=== PATIENT | male | born 1995 | race Caucasian/White ===

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

== ENCOUNTER 2017-03-12 16:23 | Emergency (ER) | payer SELFPAY ==
[~2017-03-12] VITALS: Ht 177.8 cm; Wt 65.8 kg
[2017-03-12 16:31] VITALS: BP 141/69
[2017-03-12] MEDS ORDERED: CEPHALEXIN500 M1 PO (16:53)
== END 2017-03-12 16:28 | disposition home or self-care (01) ==
LOC: ED 16:23
DX: S69.92XA Unspecified injury of left wrist, hand and finger(s), initial encounter (principal); F17.200 Nicotine dependence, unspecified, uncomplicated; W22.8XXA Striking against or struck by other objects, initial encounter; Y93.9 Activity, unspecified; Y92.9 Unspecified place or not applicable; Y99.9 Unspecified external cause status

== ENCOUNTER 2018-12-27 17:24 | Emergency (ER) | payer OTHER ==
[~2018-12-27] VITALS: Ht 177.8 cm; Wt 72.6 kg
[2018-12-27 17:26] VITALS: BP 128/71
== END 2018-12-27 19:19 | disposition home or self-care (01) ==
LOC: ED 17:24
DX: S93.401A Sprain of unspecified ligament of right ankle, initial encounter (principal); V89.9XXA Person injured in unspecified vehicle accident, initial encounter; Y93.I9 Activity, other involving external motion; Y92.488 Other paved roadways as the place of occurrence of the external cause; Y99.8 Other external cause status

== ENCOUNTER 2019-09-03 16:25 | Emergency (ER) | payer OTHER ==
[~2019-09-03] VITALS: Ht 177.8 cm; Wt 77.1 kg
[2019-09-03 16:27] VITALS: BP 133/82
[2019-09-03] MEDS ORDERED: IBU600 M1 PO (19:03)
== END 2019-09-03 19:30 | disposition home or self-care (01) ==
LOC: ED 16:25
DX: S39.011A Strain of muscle, fascia and tendon of abdomen, initial encounter (principal); J45.909 Unspecified asthma, uncomplicated; F17.200 Nicotine dependence, unspecified, uncomplicated; Z79.2 Long term (current) use of antibiotics; X50.1XXA Overexertion from prolonged static or awkward postures, initial encounter; Y93.55 Activity, bike riding; Y92.488 Other paved roadways as the place of occurrence of the external cause; Y99.8 Other external cause status

== ENCOUNTER 2020-03-03 14:42 | Emergency (ER) | payer OTHER ==
[~2020-03-03] VITALS: Ht 177.8 cm; Wt 77.1 kg
[~2020-03-03 14:42] MED LIST changes: +IBU600 M1 PO
[2020-03-03 15:11] LABS: BASO % 0.9 % (0.0-1.0); EOS # 0.1 10*3/uL (0.0-0.4); HEMATOCRIT 41.5 % (42.0-52.0); LYMPH # 1.4 10*3/uL (1.3-4.4); LYMPH % 40.6 % (27.0-41.0); MEAN CELL VOLUME 90.6 fl (80.0-94.0); MEAN CORPUSCULAR HGB 30.8 pg (27.0-31.0); MEAN PLATELET VOLUME 9.8 fl (9.6-12.3); MONO # 0.5 10*3/uL (0.1-1.0); MONO % 13.1 % (3.0-9.0); NEUT # 1.5 10*3/uL (2.3-7.9); NEUT % 42.5 % (47.0-73.0); PLATELET COUNT AUTOMATED 207 10*3/uL (130-400); RED BLOOD COUNT 4.58 10*6/uL (4.50-5.90); RED CELL DISTRI WIDTH 12.2 % (0-14.5); WHITE BLOOD COUNT 3.5 10*3/uL (4.8-10.8)
[2020-03-03 15:22] LABS: ALBUMIN 4.2 gm/dl (3.1-4.5); ALKALINE PHOSPHATASE 86 U/L (45-117); BUN 10 mg/dl (7-24); CHLORIDE 105 mmol/L (98-107); CREATININE 1.09 mg/dL (0.70-1.30); POTASSIUM 3.7 mmol/L (3.5-5.1); SGOT/AST 33 IU/L (3-35); SGPT/ALT 44 U/L (12-78); SODIUM 138 mmol/L (136-145); TOTAL PROTEIN 7.3 gm/dL (6.4-8.2)
[2020-03-03 15:28] VITALS: BP 149/87
== END 2020-03-03 15:54 ==
LOC: ED 14:42
PROVIDERS: Nurse Practitioner Family
DX: T20.30XA Burn of third degree of head, face, and neck, unspecified site, initial encounter (principal); T22.20XA Burn of second degree of shoulder and upper limb, except wrist and hand, unspecified site, initial encounter; J45.909 Unspecified asthma, uncomplicated; X14.1XXA Other contact with hot air and other hot gases, initial encounter; Y93.89 Activity, other specified; Y92.828 Other wilderness area as the place of occurrence of the external cause; Y99.0 Civilian activity done for income or pay

== ENCOUNTER 2020-06-20 02:30 | Emergency (ER) | payer OTHER ==
[~2020-06-20] VITALS: Ht 175.2 cm; Wt 71.7 kg
[2020-06-20 02:44] VITALS: BP 128/72
== END 2020-06-20 05:49 | disposition home or self-care (01) ==
LOC: ED 02:30
DX: S02.2XXA Fracture of nasal bones, initial encounter for closed fracture (principal); S00.83XA Contusion of other part of head, initial encounter; Z79.899 Other long term (current) drug therapy; Y08.89XA Assault by other specified means, initial encounter; Y93.89 Activity, other specified; Y92.89 Other specified places as the place of occurrence of the external cause; Y99.8 Other external cause status

== ENCOUNTER 2020-09-17 10:41 | Emergency (ER) | payer OTHER ==
[~2020-09-17] VITALS: Ht 177.8 cm; Wt 83.0 kg
[2020-09-17 15:35] VITALS: BP 118/66
== END 2020-09-17 16:12 | disposition home or self-care (01) ==
LOC: ED 10:41
DX: T20.40XA Corrosion of unspecified degree of head, face, and neck, unspecified site, initial encounter (principal); F10.129 Alcohol abuse with intoxication, unspecified; F17.200 Nicotine dependence, unspecified, uncomplicated; Y93.89 Activity, other specified; Y92.89 Other specified places as the place of occurrence of the external cause; Y99.8 Other external cause status; Y90.9 Presence of alcohol in blood, level not specified

== ENCOUNTER 2021-05-09 22:27 | Emergency (ER) | payer OTHER ==
[~2021-05-09] VITALS: Ht 180.3 cm; Wt 74.8 kg
[2021-05-09] MEDS ORDERED: PENICILLIN VK500 MG PO (22:39)
== END 2021-05-09 22:47 | disposition home or self-care (01) ==
LOC: ED 22:27
DX: K02.9 Dental caries, unspecified (principal)

== ENCOUNTER 2021-06-01 12:59 | Emergency (ER) | payer OTHER ==
[~2021-06-01] VITALS: Ht 180.3 cm; Wt 72.6 kg
[~2021-06-01 12:59] MED LIST changes: +PENICILLIN VK500 MG PO
[2021-06-01 13:15] VITALS: BP 115/78
== END 2021-06-01 14:40 | disposition home or self-care (01) ==
LOC: ED 12:59
DX: T15.02XA Foreign body in cornea, left eye, initial encounter (principal); X58.XXXA Exposure to other specified factors, initial encounter; Y93.89 Activity, other specified; Y92.89 Other specified places as the place of occurrence of the external cause; Y99.8 Other external cause status

== ENCOUNTER → 2021-08-25 | Outpatient (CLI) | payer OTHER | END | disposition home or self-care (01) | LOC: COVID19 15:57 | PROVIDERS: ATTEND Internal Medicine | DX: U07.1 COVID-19 (principal) ==

== ENCOUNTER 2021-12-12 16:45 | Emergency (ER) | payer OTHER ==
[~2021-12-12] VITALS: Ht 177.8 cm; Wt 74.8 kg
[2021-12-12 16:56] VITALS: BP 132/73
== END 2021-12-12 18:44 | disposition home or self-care (01) ==
LOC: ED 16:45
DX: S93.401A Sprain of unspecified ligament of right ankle, initial encounter (principal); Z90.89 Acquired absence of other organs; X58.XXXA Exposure to other specified factors, initial encounter; Y93.89 Activity, other specified; Y92.89 Other specified places as the place of occurrence of the external cause; Y99.8 Other external cause status

== ENCOUNTER 2022-10-02 02:01 | Emergency (ER) | payer OTHER ==
[~2022-10-02] VITALS: Ht 177.8 cm; Wt 77.1 kg
[2022-10-02 02:08] VITALS: BP 123/79
[2022-10-02 02:29] LABS: BASO % 0.8 % (0.0-1.0); EOS # 0.1 10*3/uL (0.0-0.4); EOS % 1.7 % (1.0-4.0); HEMATOCRIT 43.8 % (42.0-52.0); LYMPH # 1.4 10*3/uL (1.3-4.4); LYMPH % 29.8 % (27.0-41.0); MEAN CELL VOLUME 89.8 fl (80.0-94.0); MEAN CORPUSCULAR HGB 30.7 pg (27.0-31.0); MEAN CORPUSCULAR HGB CONC 34.2 g/dl (33.0-37.0); MEAN PLATELET VOLUME 9.4 fl (9.6-12.3); MONO # 0.5 10*3/uL (0.1-1.0); MONO % 9.7 % (3.0-9.0); NEUT # 2.8 10*3/uL (2.3-7.9); NEUT % 57.8 % (47.0-73.0); PLATELET COUNT AUTOMATED 217 10*3/uL (130-400); RED BLOOD COUNT 4.88 10*6/uL (4.50-5.90); RED CELL DISTRI WIDTH 12.1 % (0-14.5); WHITE BLOOD COUNT 4.8 10*3/uL (4.8-10.8)
[2022-10-02 03:12] LABS: ALKALINE PHOSPHATASE 97 U/L (46-116); BUN 8 mg/dl (9-23); CHLORIDE 102 mmol/L (98-107); SGPT/ALT 20 U/L (10-49); THYROID STIM HORMONE (HS) 0.814 uIU/ml (0.550-4.780); TOTAL PROTEIN 7.5 gm/dL (6.0-8.0)
== END 2022-10-02 03:33 | disposition home or self-care (01) ==
LOC: ED 02:01
PROVIDERS: Emergency Medicine
DX: R20.2 Paresthesia of skin (principal); R07.89 Other chest pain; Z98.890 Other specified postprocedural states; Z87.891 Personal history of nicotine dependence

== ENCOUNTER 2023-01-14 02:43 | Emergency (ER) | payer OTHER ==
[~2023-01-14] VITALS: Ht 180.3 cm; Wt 77.1 kg
[2023-01-14 02:46] VITALS: BP 131/83
[2023-01-14 03:07] LABS: BILIRUBIN Negative (Negative); BLOOD Negative (Negative); CLARITY Clear (Clear); COLOR Yellow (Yellow); GLUCOSE Negative (Negative); KETONE Negative (Negative); LEUKO ESTERASE Negative (Negative); NITRITE Negative (Negative); PH 6.5 (4.5-8.0); SPECIFIC GRAVITY <= 1.005 (1.001-1.030); UROBILINOGEN 0.2 E.U./dl (0.0-1.0)
[2023-01-14 03:14] LABS: EPITHELIAL CELLS 0-2; URINE AMPHETAMINES Negative (1000ng/ml); URINE BARBITURATES Negative (200ng/ml); URINE BENZODIAZEPINES Negative (200ng/ml); URINE CANNABINOIDS (THC) Negative (50ng/ml); URINE COCAINE Negative (300ng/ml); URINE METHADONE Negative (300ng/ml); URINE OPIATES Negative (300ng/ml); URINE PHENCYCLIDINE Negative (25ng/ml)
[2023-01-14 03:17] LABS: BASO # 0.1 10*3/uL (0.0-0.1); BASO % 0.8 % (0.0-1.0); EOS # 0.1 10*3/uL (0.0-0.4); EOS % 1.6 % (1.0-4.0); LYMPH % 31.4 % (27.0-41.0); MEAN CELL VOLUME 88.7 fl (80.0-94.0); MEAN CORPUSCULAR HGB 30.5 pg (27.0-31.0); MEAN CORPUSCULAR HGB CONC 34.4 g/dl (33.0-37.0); MEAN PLATELET VOLUME 9.6 fl (9.6-12.3); MONO # 0.6 10*3/uL (0.1-1.0); MONO % 9.3 % (3.0-9.0); NEUT # 3.5 10*3/uL (2.3-7.9); NEUT % 56.6 % (47.0-73.0); PLATELET COUNT AUTOMATED 183 10*3/uL (130-400); RED BLOOD COUNT 4.85 10*6/uL (4.50-5.90); RED CELL DISTRI WIDTH 12.1 % (0-14.5); WHITE BLOOD COUNT 6.2 10*3/uL (4.8-10.8)
[2023-01-14 03:40] LABS: ALKALINE PHOSPHATASE 91 U/L (46-116); BUN 6 mg/dl (9-23); CHLORIDE 103 mmol/L (98-107); CPK 177 U/L (34-171); ETHYL ALCOHOL 234.4 mg/dl (<3); POTASSIUM 3.5 mmol/L (3.4-5.1); SGPT/ALT 13 U/L (10-49); TOTAL PROTEIN 7.6 gm/dL (6.0-8.0)
== END 2023-01-14 15:49 | disposition home or self-care (01) ==
LOC: ED 02:43
PROVIDERS: Emergency Medicine
DX: F32.A Depression, unspecified (principal); F10.129 Alcohol abuse with intoxication, unspecified; J45.909 Unspecified asthma, uncomplicated; Z98.890 Other specified postprocedural states; Z87.891 Personal history of nicotine dependence; Y90.2 Blood alcohol level of 40-59 mg/100 ml

== ENCOUNTER 2023-04-23 22:12 | Emergency (ER) | payer OTHER ==
[~2023-04-23] VITALS: Ht 180.3 cm; Wt 74.8 kg
[2023-04-23 22:20] VITALS: BP 127/78
[2023-04-23] MEDS ORDERED: METHOCARBAMOL500 M1 PO (23:40)
[2023-04-23] MEDS ORDERED: NAPROXEN250 MG PO (23:40)
== END 2023-04-23 23:54 | disposition home or self-care (01) ==
LOC: ED 22:12
DX: S20.219A Contusion of unspecified front wall of thorax, initial encounter (principal); S80.11XA Contusion of right lower leg, initial encounter; R42 Dizziness and giddiness; V86.99XA Unspecified occupant of other special all-terrain or other off-road motor vehicle injured in nontraffic accident, initial encounter; Y93.I9 Activity, other involving external motion; Y92.488 Other paved roadways as the place of occurrence of the external cause; Y99.8 Other external cause status

== ENCOUNTER 2023-05-14 20:43 | Emergency (ER) | payer OTHER ==
[~2023-05-14] VITALS: Ht 180.3 cm; Wt 74.8 kg
[~2023-05-14 20:43] MED LIST changes: +METHOCARBAMOL500 M1 PO; +NAPROXEN250 MG PO
[2023-05-14 21:17] VITALS: BP 132/84
[2023-05-14] MEDS ORDERED: SEPTDS PO (21:35)
== END 2023-05-14 21:58 | disposition home or self-care (01) ==
LOC: ED 20:43
DX: L03.113 Cellulitis of right upper limb (principal); F17.200 Nicotine dependence, unspecified, uncomplicated

== ENCOUNTER 2025-06-04 14:12 | Emergency (ER) | payer OTHER ==
[~2025-06-04] VITALS: Ht 177.8 cm; Wt 77.1 kg
[~2025-06-04 14:12] MED LIST changes: +SEPTDS PO
[2025-06-04 14:21] VITALS: BP 128/75
[2025-06-04] MEDS ORDERED: Dexamethasone Sodium Phospha 20 MG/5 ML VIAL IV ONE (14:30)
[2025-06-04 14:40] LABS: BASO # 0.1 10*3/uL (0.0-0.1); BASO % 1.1 % (0.0-1.0); EOS # 0.1 10*3/uL (0.0-0.4); EOS % 2.6 % (1.0-4.0); MEAN CELL VOLUME 91.5 fl (80.0-94.0); MEAN CORPUSCULAR HGB 30.4 pg (27.0-31.0); MEAN PLATELET VOLUME 9.8 fl (9.6-12.3); MONO # 0.4 10*3/uL (0.1-1.0); MONO % 9.4 % (3.0-9.0); NEUT # 2.4 10*3/uL (2.3-7.9); NEUT % 52.9 % (47.0-73.0); NUCLEATED RED BLOOD CELL 0.0 % (0.0-0.0); NUCLEATED RED BLOOD CELL 0.0 10*3/uL (0.0-0.0); PLATELET COUNT AUTOMATED 185 10*3/uL (130-400); RED CELL DISTRI WIDTH 12.3 % (0-14.5)
[2025-06-04 15:10] LABS: BUN 6 mg/dl (9-23); CPK 144 U/L (34-171)
[2025-06-04] MEDS ORDERED: METHOCARBAMOL750 M1 PO (15:46)
[2025-06-04] MEDS ORDERED: PREDNISONE20 M1 PO (15:46)
== END 2025-06-04 15:54 | disposition home or self-care (01) ==
LOC: ED 14:12
PROVIDERS: Emergency Medicine
DX: M94.0 Chondrocostal junction syndrome [Tietze] (principal)